=== PATIENT | male | born 1980 | race Caucasian/White ===

== ENCOUNTER 2016-10-13 17:04 | Emergency (ER) | payer OTHER ==
[~2016-10-13] VITALS: Ht 180.3 cm; Wt 115.9 kg
[~2016-10-13 17:04] MED LIST: CELEXA20 MG PO; CELEXA40 MG PO; Celexa PO; KLONOPIN0.5 M1 NG; KLONOPIN0.5 M1 PO; KLONOPIN1 MG PO; METHADONE H5 MG/5 ML PO; METHADOSE10 MG PO; Methadone PO; NEXIUM 40 MG VI40 MG PO; NEXIUM40 MG PO; PHENERG PO; PHENERGAN12.5 M1 PO; PROMETHAZINE HC25 M1 PO; PROTONIX40 MG PO; Phenergan PO; REGLAN10 M1 PO; REGLAN10 MG PO; TESSALON200 MG PO; Tylenol Regular Stre PO; ZITHROMAX250 MG PO; ZOFRAN ODT8 MG PO; ZOFRAN4 MG PO; Zofran PO
[2016-10-13 17:37] LABS: HEMATOCRIT 44.4 % (38.0-50.0); MCH 28.2 PG (29.0-34.0); MCHC 32.4 G/DL (30.0-36.0); MCV 87.1 FL (86-99); MEAN PLAT.VOLUME 11.5 uM^3 (9.0-12.4); PLATELET COUNT 231 K/uL (156-360); RBC DIS.WIDTH-CV 14.7 % (11.8-14.6); RBC DIS.WIDTH-SD 46.1 % (39-53); WHITE BLOOD COUNT 8.8 K/uL (4.1-10.2)
[2016-10-13 17:48] LABS: CHLORIDE 104 mEq/L (99-109); POTASSIUM 3.5 mEq/L (3.7-5.4); SODIUM 141 mEq/L (136-147)
[2016-10-13 17:50] LABS: GLUCOSE 110 mg/dL (70-99)
[2016-10-13 17:51] LABS: ANION GAP 8 MEQ/L (2-14)
[2016-10-13 17:52] LABS: TOTAL BILIRUBIN 0.4 mg/dL (0.0-1.0)
[2016-10-13 17:53] LABS: SERUM ETHYL ALCOHOL < 10 mg/dL
[2016-10-13 17:54] LABS: ALKALINE PHOSPHATASE 55 IU/L (3-129); GFR ESTIMATE (CALCULATED) > 59 mL/min/
[2016-10-13 17:55] LABS: UREA NITROGEN (BUN) 21 mg/dL (9-23)
[2016-10-13 18:07] LABS: ADD MIUA? NO; BILIRUBIN NEGATIVE; BLOOD NEGATIVE; COLOR YELLOW ((YELLOW)); GLUCOSE (STRIP) NEGATIVE; KETONES NEGATIVE; LEUKOCYTES NEGATIVE; NITRITE NEGATIVE; PROTEIN (STRIP) NEGATIVE; SPECIFIC GRAVITY 1.014 (1.000-1.030); UCUL ADDED? NO; UROBILINOGEN 0.2 MG/DL (0.2-1.0)
[2016-10-13 18:16] LABS: AMPHETAMINE NEGATIVE (500 ng/mL); BARBITURATES NEGATIVE (200 ng/mL); BENZODIAZEPINES PRESUMPTIVE POSITIVE (150 ng/mL); COCAINE NEGATIVE (150 ng/mL); INTERNAL CONTROLS VALID? YES; METHADONE PRESUMPTIVE POSITIVE (200 ng/mL); METHAMPHETAMINE NEGATIVE (500 ng/mL); OPIATES (MORPHINE) NEGATIVE (100 ng/mL); OXYCODONE NEGATIVE (100 ng/mL); PHENCYCLIDINE NEGATIVE (25 ng/mL); PROPOXYPHENE NEGATIVE (300 ng/mL); THC CANNABINOIDS NEGATIVE (50 ng/mL); TRICYCLIC ANTIDEPRESSANTS NEGATIVE (300 ng/mL)
[2016-10-13 18:17] LABS: ADD MEDTOX COMMENT Y
[2016-10-13 18:40] LABS: BENZODIAZEPINES, URINE SCREEN POSITIVE (200 ng/mL)
[2016-10-13] MEDS ORDERED: ZYRTEC10 M3 PO (21:28)
[2016-10-13] MEDS ORDERED: BENTYL20 MG PO (21:28)
[2016-10-13] MEDS ORDERED: CARAFATE1 GM PO (21:28)
[2016-10-13] MEDS ORDERED: REGLAN10 MG PO (21:28)
[2016-10-13] MEDS ORDERED: CEFTIN500 MG PO (21:28)
[2016-10-13] MEDS ORDERED: ZITHROMAX500 MG PO (21:28)
[2016-10-13 21:48] VITALS: BP 133/96
== END 2016-10-13 21:57 | disposition home or self-care (01) ==
LOC: EME 17:04
DX: J06.9 Acute upper respiratory infection, unspecified (principal); K29.70 Gastritis, unspecified, without bleeding; F32.9 Major depressive disorder, single episode, unspecified; F41.9 Anxiety disorder, unspecified; F11.20 Opioid dependence, uncomplicated; K21.9 Gastro-esophageal reflux disease without esophagitis
CPT/HCPCS: 71020; 80053; 81003; 84999; 85027; 90839; 99281; 99285; G0480; J2765